=== PATIENT | female | born 1980 | race Caucasian/White ===

== ENCOUNTER → 2017-07-08 | Day surgery (SDC) | payer OTHER ==
[~2017-07-08] VITALS: Ht 165.1 cm; Wt 54.4 kg
[~2017-07-08] MED LIST: 0.9% Sodium Chloride 1,000 ML IV ONE; FLUT9.9S NS; NORE1TAB26 PO; Propofol 10,000 mCg/mL 20 mL Inj ONE; Sodium Chloride LOK Flush 10 mL Syringe IV PRN; fentaNYL-PF 50 mCg/mL 2 mL Inj IVPUSH PRN
[2017-07-08 14:08] VITALS: BP 122/78; PULSE 96; RESP 16; O2SAT 98
[2017-07-08] MEDS: 0.9% Sodium Chloride 1,000 ML IV SCH ×2 (14:54→15:53)
--- NOTE | 2017-07-08 15:12 | PCM.ENDEGD ---
EGD Date of Service: Jul 08, 2017 Physician Philippe Mendenhall MD Pre Procedure Diagnosis: Abdominal pain Post Procedure Dx & Findings: Normal upper GI Procedure Esophagogastroduodenoscopy PROCEDURE IN DETAIL: After proper sedation, Olympus video endoscope was inserted into patient's mouth and esophagus was successfully intubated. Scope introduced esophagus. Esophagus showed normal shiny whitish mucosa consistent with squamous cell component. Z line was intact at 40 cm from the incisors. Scope further advanced to the stomach. Stomach showed normal shiny mucosa with normal appearing rugae folds without any ulcer mass erosion. Cardia fundus body antrum pylorus were all visualized. Retroflexion was done. Stomach was easily inflated and deflatable using air. Scope further advanced to the distal duodenum. Duodenum revealed normal villous structures with normal appearing folds without any mass ulcer erosion. 5 biopsy obtained for celiac. Impression Normal upper GI Presedation Assessment Risks and Benefits Informed consent was obtained from the patient after all risks and benefits including but not limited to drug reaction, infection, pain, bleeding, perforation, as well as alternatives were discussed. Patient monitoring Continuous pulse oximetry, cardiac monitoring, blood pressure monitoring, IV access, and oxygen at 2L per nasal cannula. Periprocedural Fentanyl: Fentanyl 200mcg Incrementally Midazolam: Midazolam 10mg Incrementally Complications There were no periprocedural complications identified. Post Procedure Plan Post Procedure Recommendations 1. Restrict activities today. 2. Resume normal activities in the morning. 3. Resume medications. 4. GERD behavioral modification: - Avoid fatty, acidic, spicy, large meals - Do not lie down after meals - Do not eat or drink anything for at least 2 1/2 hours before going to bed at night - Discontinue tobacco and alcohol - Decrease or avoid caffeine - Avoid chocolate and mints - Decrease weight - Avoid aspirin and non steroidal anti-inflammatory agents (NSAID) such as Aleve, Advil, Mobic, Naproxen, Ibuprofen, etc 5. Add proton pump inhibitor. Take 30 minutes before 1st meal of the day. 6. Patient informed of normal post procedure side effects as bloating, drowsiness, blood streaking in the stool 7. If gastric biopsy reveal H.pylori, continue with appropriate treatment 8. If small bowel biopsy reveals celiac, continue with appropriate treatment 9. Please don't hesitate to call me with any questions Philippe Mendenhall MD Jul 08, 2017 15:12
[2017-07-08 15:16] VITALS: BP 96/52; PULSE 85; RESP 12; O2SAT 100
--- NOTE | 2017-07-08 15:17 | PCM.ENDCOL ---
Colonoscopy Date of Service: Jul 08, 2017 Physician Philippe Mendenhall MD Pre Procedure Diagnosis: Abdominal pain and diarrhea and rarely constipation Post Procedure Dx & Findings: Normal colon and TI Procedure Colonoscopy PROCEDURE IN DETAIL: Prep adequate Withdrawal time 8 minutes After unremarkable rectal examination the Olympus video colonoscope was inserted patient's anal canal and was advanced to cecum. Landmarks were identified including the ileocecal valve and appendiceal orifice. Scope was withdrawn systematically. Scope further advanced to terminal ileum. Advanced 10 cm. Visualized terminal ileum showed normal villous structures without any mass ulcer or erosion. Visualized colonic mucosa showed healthy shiny mucosa with normal healthy-appearing vasculature. Random biopsies obtained from the cecum to the rectum. In the rectum retroflexion was done which showed hemorrhoids. Anal canal was inspected carefully on the way out and hemorrhoids noted. Impression Hemorrhoids Recommendation Follow up with Nahum in the GI clinic] Presedation Assessment Risks and Benefits Informed consent was obtained from the patient after all risks and benefits including but not limited to drug reaction, infection, pain, bleeding, perforation, as well as alternatives were discussed. Patient monitoring Continuous pulse oximetry, cardiac monitoring, blood pressure monitoring, IV access, and oxygen at 2L per nasal cannula. Complications There were no periprocedural complications identified. Post Procedure Plan Post Procedure Recommendations 1. Restrict activities today. 2. Resume normal activities in the morning. 3. Resume medications. 4. Patient informed of normal post procedure side effects as bloating, drowsiness, blood streaking in the stool. 5. average risk CRCS. If colon polyps come back as: -Hyperplastic- can repeat colonoscopy in 10 years -Tubular adenoma- repeat colonoscopy in 5 years -Tubulovillous/villous adenoma- repeat colonoscopy in 3 years -If any dysplasia- return to clinic as soon as possible 6. Please don't hesitate to call me with any questions. Philippe Mendenhall MD Jul 08, 2017 15:17
--- NOTE | 2017-07-08 15:18 | PCM.HPANE ---
Patient Data Date of Service: Jul 08, 2017 Surgeon Admitting Provider: Attending Provider:Philippe Mendenhall MD Primary Care Physician:Lori Lerma MD Other Provider: Reason for Visit Gen Abdominal Pain Ht/WT & BMI Height (Feet): 5 Height (Inches): 5 Weight (Kilograms): 54.43 Body Mass Index 19.00 Allergies Coded Allergies: No Known Drug Allergies (Verified Allergy, Unknown, 07/08/17) Past Anesthesia History Anesthesia History: Denies:: Abnormal Airway, Anesthesia Reactions, Difficult Intubation, Fam Anesthesia Reaction, Fam Malignant Hypertherm, Malignant Hyperthermia Diabetes History Hx Diabetes?: No MRSA MRSA: No Medications Hypertension Medication: No Home Meds Incl Beta Arnaldo: No Reported Medications Noreth A-Et Estra/Fe Fumarate (Junel Fe 1.5 mg-30 Mcg Tablet)1 Each Tablet1 Each PO 07/08/17 Fluticasone Propionate (Flonase Allergy Relief)50 Mcg/Actuation [place].susp9.9 Ml NS 07/08/17 History History of ENT Problems?: No HEENT History: Denies:: Abnormal Airway Difficult Intubation Hearing Problem Denture Type: None Teeth Condition: Within Normal Limits Hx of Heart Problems?: No Cardiovascular History: Denies:: Abdominal Aortic Aneurism Hx of Respiratory Problem?: No Respiratory History: Denies:: Asthma Hx Neurologic Problems?: No Neurological History: Denies:: CVA Hx of GI Problems?: No Hx of Problems?: No HX of Peritoneal Dialysis: No Female Hx: Denies:: Currently Skin History: Denies:: History Skin Disorders? Hx Musculoskeletal Problems?: No Hx Surgeries?: Yes (bunion x2, sinus , breast augmentation) Hx Any Other Health Problems?: No Hx Diabetes: No Hx Alcohol Use: No Stop/Bang Treated for Sleep Apnea?: No Do You Have a CPAP Machine?: No S-Snoring: Do You Snore Loudly: No T-Tired: feel tired, fatigued: No O-Obsered: Observed not breath: No P-Blood Pressure: treated: No B- Body Mass Index > 35 kg/m2: No A- Age over 50: No N- Neck Large Circumference: No G- Gender Male: No DAVID Total Score: 0 DAVID Risk Assessment: Low Risk, <3 Yes Risk Assessment Category Category 1A: Patient has history of documented sleep apnea, and HAS NOT received any narcotic, sedative or anesthesia administration during this stay. Category 1B: Patient has history of documented sleep apnea, and HAS received any narcotic , sedative or anesthesia administration during this stay Category 2: Patient has SUSPECTED Obstructive Sleep Apnea, and HAS received any narcotic , sedative or anesthesia administration during this stay. Category 3: Patient has SUSPECTED Obstructive Sleep Apnea and HAS NOT received narcotic, sedative or anesthesia administration during this stay. Category 4: Outpatient in Procedural Areas with known sleep apnea or who screen positive for High Risk via the STOP/BANG questionnaire. Exam Exam Vital Signs Vital Signs Date Time Temp Pulse Resp B/P Pulse Ox O2 Delivery O2 Flow Rate FiO2 07/08/17 14:08 96 16 122/78 98 Room Air General Appearance: Alert, Oriented X3 HEENT/AIRWAY: MP 2 Lungs: Clear to Auscultation Heart: Exam Unremarkable Meds/Labs/Diagnostics Admission Meds Current Medications Sodium Chloride (Normal Saline) 1,000 ml @ 10 mls/hr Q24H IV Last administered on 07/08/17 14:54; Start 07/08/17 at 06:00 Lidocaine HCl 15 ml 15 ml ONCE PO Last administered on 07/08/17 14:48; Start 07/08/17 at 06:00 Sodium Chloride (Normal Saline) 1,000 ml @ ud STK-MED ONCE IV Last administered on 07/08/17 14:57; Start 07/08/17 at 14:57; Stop 07/08/17 at 14:58 ; Status DC Plan Impression Patient chart reviewed, patient interviewed and anesthestic plan with risks, benefits, and alternatives discussed, and informed consent obtained. NPO per Anesth. Guidelines: Yes ASA Physical Status: ASA1 Normal Healthy Anesthetic Plan: MAC Bene/Risks/Altern/Consents: Yes HP Complete Prior to Induction: Yes Other called for rescue. Report by RN. Patient wakeful, but not reliable historian after 10 midazolam and 200ug fentanyl. Kwadwo Boogie MD Jul 08, 2017 15:18
--- NOTE | 2017-07-08 15:18 | PCM.ANEP1 ---
Post Anesthesia PACU Phase 1 Assessment Vital Signs Vital Signs Date Time Temp Pulse Resp B/P Pulse Ox O2 Delivery O2 Flow Rate FiO2 07/08/17 14:08 96 16 122/78 98 Room Air Anesthetic Administered: MAC Level of Alertness: Awake, talking Pain: No Nausea or Vomiting: No CV Function & Hydration Stable: Yes Airway Device: Oxygen Delivery: Room Air Lungs: Clear to Auscultation PACU Phase 2 Assessment Complications: No Follow up Care: N/A Patient Instructions Provided: N/A Kwadwo Boogie MD Jul 08, 2017 15:18
[2017-07-08 15:30] VITALS: BP 98/57; PULSE 78; RESP 12; O2SAT 92
[2017-07-08 15:42] VITALS: BP 106/66; PULSE 80; RESP 12; O2SAT 100
--- NOTE | 2017-07-14 08:06 | PATH ---
SURGICAL PATHOLOGY Attending Physician:Philippe Mendenhall M.D. CASE STATUS: Signed Out PATIENT NAME: SHEEBA ROJAS PID: [id number] : 1980 DATE COLLECTED:07/08/2017 00:00 SPECIMEN: 1: Duodenum, Biopsy 2: Colon, Biopsy CLINICAL HISTORY: 1). DUODENAL BIOPSY 2). RANDOM COLON BIOPSY FINAL DIAGNOSIS: 1. Duodenal Biopsy: Superficial portions of duodenal mucosa with no diagnostic abnormality. Negative for active inflammation, features of sprue, dysplasia, and malignancy. 2. Random Colon Biopsies: Superficial portions of colorectal mucosa with scattered lymphoid aggregates and melanosis coli. Negative for active inflammation, granulomas, dysplasia, and malignancy. Negative for microscopic colitis. ICD10: K52.9 GROSS DESCRIPTION: The specimen is received in two formalin filled containers labeled with the patient's name. 1). The specimen is labeled "duod" and consists of 3 tiny portions of tissue which aggregate to 0.1 x 0.1 x 0.1 CM. 2). The specimen is labeled "random colon" and consists of multiple tiny portions of tissue which aggregate to 0.4 x 0.3 x 0.2 CM. The specimen is entirely submitted in cassette 2A. 07/09/2017DC ICD-9 CODES: CPT CODES: 1: 64969 2: 17359 Electronically Signed Out Leia Trevino MD [facility]ology [facility] [address], [place] [address] Technical component performed at [facility], [address] [place] [address] Ave[address], [place], [address]
== END | disposition home or self-care (01) ==
LOC: END 00:46
PROVIDERS: ATTEND Internal Medicine
DX: K52.9 Noninfective gastroenteritis and colitis, unspecified (principal); R10.84 Generalized abdominal pain; M54.5 Low back pain; K21.9 Gastro-esophageal reflux disease without esophagitis; K64.9 Unspecified hemorrhoids
CPT/HCPCS: 43239; 45380; 99153; G0500; J2250; J2704; J3010; J7030